=== PATIENT | male | born 1980 | race Caucasian/White ===

== ENCOUNTER 2025-01-22 21:21 | Inpatient (IN) | payer MEDICAID, OTHER ==
[2025-01-22] MEDS ORDERED: MAG HYDROX/AL HYDROX/SIMETH 355 ML BOTTLE PO PRN (21:36)
[2025-01-22] MEDS ORDERED: HALOPERIDOL LACTATE 5 MG/ML 1 ML VIAL IM PRN (21:36)
[2025-01-22] MEDS ORDERED: ACETAMINOPHEN TAB 325 MG TAB PO PRN (21:36)
[2025-01-22] MEDS ORDERED: LORazepam 1 MG TAB PO PRN ×3 (21:36)
[2025-01-22] MEDS ORDERED: MAGNESIUM HYDROXIDE 2,400 MG/30 ML CUP PO PRN (21:36)
[2025-01-22] MEDS ORDERED: OLANZapine 10 MG TAB PO PRN (21:39)
[2025-01-23 08:31] LABS: Basophils # (A) 0.04 10*3/uL (0.00-0.10); Basophils % (A) 0.7 %; Eosinophils # (A) 0.20 10*3/uL (0.04-0.35); Eosinophils % (A) 3.4 %; HCT 45.2 % (39.6-50.0); HGB 15.4 g/dL (13.0-17.0); Lymphocytes # (A) 1.27 10*3/uL (0.90-5.00); Lymphocytes % (A) 21.5 %; MCH 31.0 pg (27.0-32.0); MCHC 34.1 g/dL (32.0-37.0); MCV 90.9 fL (80.0-97.0); Monocytes # (A) 1.12 10*3/uL (0.20-1.00); Monocytes % (A) 19.0 %; Neutrophils # (A) 3.25 10*3/uL (1.80-7.70); Neutrophils % (A) 55.1 %; Platelet Count 138 10*3/uL (140-440); RBC 4.97 10*6/uL (4.40-5.60); RDW 12.4 % (11.5-14.5); WBC 5.90 10*3/uL (4.50-10.00)
[2025-01-23 08:50] LABS: ALT 106 U/L (4-49); AST 110 U/L (17-59); African American GFR (CKD) >90 (>60 ml/min/1.73 sqM); Albumin 3.9 g/dL (3.5-5.0); Alkaline Phosphatase 57 U/L (38-126); Anion Gap 7 mmol/L; Blood Urea Nitrogen 17 mg/dL (9-20); Calcium 8.9 mg/dL (8.4-10.2); Carbon Dioxide 29 mmol/L (22-30); Chloride 103 mmol/L (98-107); Glucose 114 mg/dL (74-99); Non-African American GFR(CKD) 89 (>60 ml/min/1.73 sqM); Potassium 4.1 mmol/L (3.5-5.1); Sodium 139 mmol/L (137-145); Total Protein 6.6 g/dL (6.3-8.2)
[2025-01-23] MEDS: LORazepam 1 MG TAB PO PRN (10:02)
[2025-01-23] MEDS: MULTIVITAMINS, THERA 1 EACH TAB PO SCH (10:02)
[2025-01-23] MEDS: FOLIC ACID 1 MG TAB PO SCH (10:02)
[2025-01-23] MEDS: VENLAFAXINE HCL ER 150 MG CAP PO SCH (10:02)
[2025-01-23] MEDS: THIAMINE 100 MG TAB PO SCH (10:02)
[2025-01-23] MEDS: NICOTINE 14MG/24HR PATCH TRANSDERM SCH (10:02)
--- NOTE | 2025-01-23 10:15 | P.HP ---
Psychiatric H&P - . H&P Date: 01/23/25 History & Physical: Allergies Allergy/AdvReac Type Severity Reaction Status Date / Time No Known Allergies Allergy Verified 01/22/25 21:30 Vital Signs Temp 98.0 F 01/23/25 04:55 Pulse 79 01/23/25 04:55 Resp 16 01/23/25 04:55 BP 111/82 01/23/25 04:55 Pulse Ox 95 01/23/25 04:55 FiO2 Intake & Output 01/22/25 01/23/25 01/23/25 18:59 06:59 18:59 Weight 107.331 kg Laboratory Last Values WBC 5.90 10*3/uL (4.50-10.00) 01/23/25 08:06 RBC 4.97 10*6/uL (4.40-5.60) 01/23/25 08:06 Hgb 15.4 g/dL (13.0-17.0) 01/23/25 08:06 Hct 45.2 % (39.6-50.0) 01/23/25 08:06 MCV 90.9 fL (80.0-97.0) 01/23/25 08:06 MCH 31.0 pg (27.0-32.0) 01/23/25 08:06 MCHC 34.1 g/dL (32.0-37.0) 01/23/25 08:06 Plt Count 138 10*3/uL (140-440) L 01/23/25 08:06 MPV 9.0 fL (9.5-12.2) L 01/23/25 08:06 Immature Gran % (Auto) 0.3 % 01/23/25 08:06 Neutrophils % 55.1 % 01/23/25 08:06 Lymphocytes % 21.5 % 01/23/25 08:06 Monocytes % 19.0 % 01/23/25 08:06 Eosinophils % 3.4 % 01/23/25 08:06 Basophils % 0.7 % 01/23/25 08:06 Immature Gran # 0.02 10*3/uL (0.00-0.04) 01/23/25 08:06 Neutrophils # 3.25 10*3/uL (1.80-7.70) 01/23/25 08:06 Lymphocytes # 1.27 10*3/uL (0.90-5.00) 01/23/25 08:06 Monocytes # 1.12 10*3/uL (0.20-1.00) H 01/23/25 08:06 Eosinophils # 0.20 10*3/uL (0.04-0.35) 01/23/25 08:06 Basophils # 0.04 10*3/uL (0.00-0.10) 01/23/25 08:06 Sodium 139 mmol/L (137-145) 01/23/25 08:06 Potassium 4.1 mmol/L (3.5-5.1) 01/23/25 08:06 Chloride 103 mmol/L (98-107) 01/23/25 08:06 Carbon Dioxide 29 mmol/L (22-30) 01/23/25 08:06 Anion Gap 7 mmol/L 01/23/25 08:06 BUN 17 mg/dL (9-20) 01/23/25 08:06 Creatinine 1.02 mg/dL (0.66-1.25) 01/23/25 08:06 Est GFR (CKD-EPI)AfAm >90 (>60 ml/min/1.73 sqM) 01/23/25 08:06 Est GFR (CKD-EPI)NonAf 89 (>60 ml/min/1.73 sqM) 01/23/25 08:06 Glucose 114 mg/dL (74-99) H 01/23/25 08:06 Calcium 8.9 mg/dL (8.4-10.2) 01/23/25 08:06 Total Bilirubin 0.7 mg/dL (0.2-1.3) 01/23/25 08:06 AST 110 U/L (17-59) H 01/23/25 08:06 ALT 106 U/L (4-49) H 01/23/25 08:06 Alkaline Phosphatase 57 U/L (38-126) 01/23/25 08:06 Total Protein 6.6 g/dL (6.3-8.2) 01/23/25 08:06 Albumin 3.9 g/dL (3.5-5.0) 01/23/25 08:06 TSH 1.460 mIU/L (0.465-4.680) 01/23/25 08:06 01/23/25 09:58 IDENTIFYING DATA: Patient is a 44-year-old male currently living with his aunt and unemployed. HPI: The patient presented to the hospital voicing thoughts of wanting to bring himself. He patient was placed under involuntary certification at this point. The patient notes that he relapsed 2 weeks prior to his admission which he notes increases his depression when he drinks. He notes that he started feeling suicidal with plans of hanging himself but no intent at that time and felt that he needed to get help. The patient has a history of depression when he is sober that waxes and wanes. He notes that currently his depression and anxiety are rated 10/10 over the last 2 weeks. He notes that he has been struggling with his sleep which is a pattern when he drinks. He feels that he has no energy, appetite or concentration. He feels helpless, hopeless and worthless. He notes bouts of crying and feelings of shame. He is unsure if he would harm himself upon discharge at this point. He denies any homicidal thoughts or access to guns. Stressors: Recent move, Unemployment Review of psychiatric systems: Bipolar disorder-negative OCD-negative PTSD-negative Anxiety-chronic worrywart 50% of the day, has problems initiating and maintaining sleep, has chronic fatigue issues and muscle tension Psychosis-negative PAST PSYCHIATRIC HISTORY: The patient has a history of Depression, Anxiety, Alcohol use disorder. The patient has had 4 prior admissions. The patient has had 0 suicide attempts. The patient follows up with cares and AA for therapy. The patient is currently on Effexor XR 150 mg, Mirtazapine 30 mg, Trazodone 100 mg. He has past trials with Hydroxyzine, Lexapro and clonidine. The patient notes no physical, verbal or mental abuse growing up however, notes made several times about his mother being a drug addict in front of him. He denies any sexual abuse in childhood. He notes no history of being behind bars or violence towards other people. PMH: Chronic back pain ALLERGIES: No known drug allergies CHEMICAL DEPENDENCY HISTORY: Caffeine-positive Nicotine-1 pack/day Alcohol-started drinking at the age of 15 but notes that heavy use period drinking is roughly a pint of whiskey daily. Notes when he does not drink he developed sweats and tremors. He has been through 6 rehabs in detoxes in the past. He has been on naltrexone, campral and Antabuse in the past. Cannabis-positive FAMILY PSYCHIATRIC/SUBSTANCE USE HISTORY: Mother overdosed on heroin and has a history of being a heroin addict. Patient notes that everybody in the family suffers from mental illness. SOCIAL HISTORY: The patient was born and raised in [place] and notes that his childhood was "dysfunctional". He notes that he was held back in school and was in special ed. He notes that he completed the 10th grade at the age of 17. 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 He currently lives with his aunt and notes that he is temple. He denies any service. MENTAL STATUS EXAM: General Appearance: Patient appears to be his stated age is alert, directable, and attempts to cooperate. Patient appears to have fair hygiene and grooming. Behavior: Patient presented shaky with tremors but was cooperative and engaged. Speech: Patient's speech is fluent and nonpressured. Mood/Affect: Patient reports their mood is moderately depressed, affect is congruent and constricted. Suicidality/Homicidality: Patient denies having any homicidal ideation intent or plan. Suicidal thoughts with plan but not intent Perceptions: Patient denies any visual hallucinations and denies any auditory hallucinations Though content/process: Circumstantial/suicidal thoughts Memory and concentration: AOX3, grossly intact for the purposes of this session. Can spell "WORLD" backwards Judgment and insight: Poor/Poor STRENGTHS/WEAKNESSES: strength is that patient is resilient. Weakness is that patient has poor judgment and is impulsive INTELLECT: Below average Diagnosis: Alcohol withdrawal Alcohol use disorder severe Major depressive disorder recurrent moderate Generalized anxiety disorder Tobacco use disorder Cannabis use disorder PLAN: -Patient is admitted under involuntary status to MHU for stabilization of psychiatric symptoms and safety. Patient has signed adult voluntary form and medication consent and is placed in patient's chart. -Medications : Continuing Effexor XL 150 mg take 1 tablet by mouth once daily for depression/anxiety Trazodone 50 mg take 1 tablet by mouth at bedtime for insomnia Mirtazapine 30 mg take 1 tablet by mouth at bedtime for insomnia/depression/anxiety Start Naltrexone 50 mg take 1 tablet by mouth once daily for alcohol -Ativan and Haldol PRN for agitation/aggression -Started thiamine, MVM for etoh use -CIWA protocol with Ativan PRN for ETOH withdrawal. -Patient was counselled on substance abuse and desired to cut back on use -Will offer patient subtance use rehab -Patient was informed of the risks, benefits and side effects of the medication and patient verbally consented to taking the medications. Patient signed med consent form and was placed in chart. -Internal Medicine consult to perform medical evaluation and physical. -NRT -nicotine patch -SW on board for discharge planning. Encourage patient to participate in groups to work on coping skills.
[2025-01-23] MEDS: NALTREXONE HCL 50 MG TAB PO SCH (11:08)
[2025-01-23 15:22] LABS: Cholesterol 172.00 mg/dL (0.00-200.00); HDL Cholesterol 53.50 mg/dL (40.00-60.00); LDL Cholesterol,Calculated 86.5 mg/dL (0.0-131.0); Triglycerides 160.00 mg/dL (0.00-149.00); VLDL Calculation 32.00 mg/dL (5.00-40.00)
--- NOTE | 2025-01-23 20:02 | P.CONS ---
History of Present Illness - Reason for Consult Consult date: 01/23/25 medical co-managment - Chief Complaint SI - History of Present Illness Mr. Hooper is a 44-year-old male with past medical history of alcohol use disorder, tobacco use and depression/anxiety He reports that he had a change of living situation. He reports that previously he was living with his aunt and uncle and reports that he had moved to a different aunt. He reports that he has been drinking approximately 1 pint a day of alcohol. He reports he has been drinking uncle for a long time. He reports that he had some thoughts of suicidal ideation. He reports he does not have a plan and he does not have any access to firearms. He reports that his suicidal ideation started Wednesday. Given the symptoms suicidal ideation he then presented to the ER. He does feel at this time he is withdrawing from alcohol. Current lab work available from January 23 at 8:00 shows a white blood cell count of 5.9 hemoglobin 15.4 platelet count of 138. CMP shows an AST of 110 ALT of 106 glucose 114. Lipid profile shows a triglyceride 160 LDL of 86 HDL 53 and a TSH of 1.4. Drug screen and urinalysis currently pending at the time of this writing Review of Systems Negative except for HPI Past Medical History History of Any Multi-Drug Resistant Organisms: None Reported Past Surgical History: Hernia Repair Past Anesthesia/Blood Transfusion Reactions: No Reported Reaction Past Psychological History: No Psychological Hx Reported Smoking Status: Current every day smoker Past Alcohol Use History: Abuse, Daily, Heavy Past Drug Use History: None Reported Medications and Allergies Home Medications Medication Instructions Recorded Confirmed Type Gabapentin 300 mg PO TID 01/22/25 01/22/25 History Melatonin 3 mg PO HS 01/22/25 01/22/25 History Mirtazapine [Remeron] 30 mg PO HS 01/22/25 01/22/25 History OLANZapine [ZyPREXA] 10 mg PO DAILY PRN 01/22/25 01/22/25 History Venlafaxine HCl [Effexor XR] 150 mg PO BID 01/22/25 01/22/25 History cloNIDine HCL 0.1 mg PO BID 01/22/25 01/22/25 History traZODone HCL [Desyrel] 50 mg PO HS 01/22/25 01/22/25 History Allergies Allergy/AdvReac Type Severity Reaction Status Date / Time No Known Allergies Allergy Verified 01/22/25 21:30 Physical Exam Vitals: Vital Signs Temp Pulse Resp BP BP Pulse Ox 01/23/25 09:00 97.0 F L 92 116/81 94 L 01/23/25 04:55 98.0 F 79 16 111/82 95 Intake and Output 01/23/25 01/23/25 01/23/25 06:59 14:59 22:59 Other: Weight 107.331 kg General: [nontoxic], [no distress], [appears at stated age] Derm: [warm], [dry] Head: [atraumatic], [normocephalic], [symmetric] Eyes: [EOMI], [no lid lag], [anicteric sclera] Mouth: [no lip lesion], [mucus membranes moist] Cardiovascular: [S1S2 reg], [no murmur], [positive posterior tibial pulse bilateral], Lungs: [CTA bilateral], [no rhonchi, no rales] , [no accessory muscle use] Abdominal: [soft], [ nontender to palpation], [no guarding], [no appreciable organomegaly] Ext: [no gross muscle atrophy], [no edema], [no contractures] Neuro: Moving all extremity spontaneously [no focal neuro deficits] Psych: [Alert], [oriented], [appropriate affect] Results CBC & Chem 7: 01/23/25 08:06 01/23/25 08:06 Labs: Abnormal Lab Results - Last 24 Hours (Table) 01/23/25 01/23/25 Range/Units 08:06 08:06 Plt Count 138 L (140-440) 10*3/uL MPV 9.0 L (9.5-12.2) fL Monocytes # 1.12 H (0.20-1.00) 10*3/uL Glucose 114 H (74-99) mg/dL AST 110 H (17-59) U/L ALT 106 H (4-49) U/L Triglycerides 160.00 H (0.00-149.00) mg/dL Assessment and Plan Assessment: #) EtOH use disorder with EtOH withdrawal. He reports he drinks 1 pint a day and has been drinking alcohol his entire life. Continue CIWA with as needed Ativan. Continue high-dose thiamine and multivitamin support. The patient has been started on naltrexone therapy to help with EtOH craving #) EtOH transaminitis. Monitor LFTs and would recommend rechecking in approximately 1 month #) Tobacco use, recommend cessation, nicotine patch has been ordered #) Suicidal ideation, primary management as per psychiatry team #) Depression/anxiety. Continue home Effexor 150 mg twice daily, mirtazapine 30 mg nightly #) Class I obesity with a BMI of 33.9, weight loss recommended Urine drug screen and urinalysis currently pending at the time this writing Thank you for allowing us to take care of this patient, please contact us if any questions arise Time with Patient: Greater than 30
[2025-01-23] MEDS: MELATONIN 3 MG TABLET PO SCH (21:51)
[2025-01-23] MEDS: MIRTAZAPINE 15 MG TAB PO SCH (21:52)
[2025-01-23] MEDS: NICOTINE 21MG/24HR PATCH TRANSDERM SCH (22:44)
[2025-01-24] MEDS: NICOTINE 21MG/24HR PATCH TRANSDERM SCH (08:32)
[2025-01-24 12:42] VITALS: BMI 33.8
--- NOTE | 2025-01-24 12:46 | P.PN ---
Progress Note - Text Progress Note Date: 01/24/25 Chief complaint: Suicidal thoughts, Interval History: Patient was seen wandering the hallways and was directable and agreeable to speak with investigative writer in the office. The patient notes that his cravings are decreasing but, he notes that he is jittery and sweaty. Per staff he scored a 5 on his CIWA. He notes that his depression and anxiety are 6/10 with 10 being worse than yesterday 10/10. He notes that he slept better and had 4 hours of sleep last night. He notes that his energy remains low but he has noticed an improvement with his appetite and concentration. He denies any ongoing suicidal thoughts. He had mentioned that he has had back problems for a while and used to be on gabapentin. I explained to the patient that he had ibuprofen as well as Tylenol if he needed help with back pain at this point. Mental Status Exam: General Appearance: Patient appears to be stated age is alert, directable, and cooperative. Behavior: Patient is calmly seated without any agitated behavior. Speech: Patient's speech is fluent and nonpressured. Mood/Affect: Mood is improving mildly, affect is congruent and constricted. Suicidality/Homicidality: Patient denies having any suicidal or homicidal ideation intent or plan. Perceptions: Patient denies any visual hallucinations and denies any auditory hallucinations Though content/process: There is no evidence of any delusional thought content and thought process is linear and goal-directed. Memory and concentration: AOX3, grossly intact for the purposes of this session Judgment and insight: Improving mildly Diagnosis: Alcohol withdrawal Alcohol use disorder severe Major depressive disorder recurrent moderate Generalized anxiety disorder Tobacco use disorder Cannabis use disorder Assessment: The patient continues to go through alcohol withdrawal. Patient is dealing with some back pain and was informed that the as needed medications help with that. It is felt that if this does not improve his overall pain level possibly gabapentin which would be beneficial for anxiety as well as alcohol use disorder. PLAN: -Patient is admitted under involuntary status to MHU for stabilization of psychiatric symptoms and safety. Patient has signed adult voluntary form and medication consent and is placed in patient's chart. -Medications : Continuing Effexor XL 150 mg take 1 tablet by mouth once daily for depression/anxiety Trazodone 50 mg take 1 tablet by mouth at bedtime for insomnia Mirtazapine 30 mg take 1 tablet by mouth at bedtime for insomnia/depression/anxiety Naltrexone 50 mg take 1 tablet by mouth once daily for alcohol -Ativan and Haldol PRN for agitation/aggression -Started thiamine, MVM for etoh use -CIWA protocol with Ativan PRN for ETOH withdrawal. -Patient was counselled on substance abuse and desired to cut back on use -Will offer patient subtance use rehab -Patient was informed of the risks, benefits and side effects of the medication and patient verbally consented to taking the medications. Patient signed med consent form and was placed in chart. -Internal Medicine consult to perform medical evaluation and physical. -NRT -nicotine patch -SW on board for discharge planning. Encourage patient to participate in groups to work on coping skills.
--- NOTE | 2025-01-25 12:40 | P.PN ---
Progress Note - Text Progress Note Date: 01/25/25 Interval History: Patient was seen laying in bed today. stated [facility] he states that he is continuing to have difficulties with his drinkng. claims that his mood and anxiety have been mildly improving since yesterday. He states that he is still having some minor w/d sx however is denying going to any groups was encouraged to do so today. Claims his appetite is improving. He would like some medication that he is currently does. States that he slept quite a bit last night. He continues to be fairly indifferent about a week, spoke about it and options. He claims that he will think about it today for follow-up. At this time he is denying any suicidal or homicidal ideations intent or plan of the auditory or visual decisions. Not reporting any side effects from the medications. Mental Status Exam: General Appearance: Patient appears to be stated age is alert, directable, and cooperative. Behavior: Patient is calmly seated without any agitated behavior. Superficial at times. He was fairly pleasant Speech: Patient's speech is fluent and nonpressured. Mood/Affect: Mood is improving mildly, affect is congruent and constricted. Suicidality/Homicidality: Patient denies having any suicidal or homicidal ideation intent or plan. Perceptions: Patient denies any visual hallucinations and denies any auditory hallucinations Though content/process: There is no evidence of any delusional thought content and thought process is linear and goal-directed. Rambling at times. Memory and concentration: AOX3, grossly intact for the purposes of this session Judgment and insight: Poor, improving mildly Diagnosis: Major depressive disorder without psychotic features Alcohol use disorder severe Generalized anxiety disorder Nicotine dependence Cannabis use disorder PLAN: -Patient is admitted under voluntary status to MHU for stabilization of psyc hiatric symptoms and safety. Patient has signed adult voluntary form and medication consent and is placed in patient's chart. -Medications : Effexor XL 150 mg take 1 tablet by mouth once daily for depression/anxiety Trazodone 50 mg take 1 tablet by mouth at bedtime for insomnia Mirtazapine 30 mg take 1 tablet by mouth at bedtime for insomnia/depression/anxiety Naltrexone 50 mg take 1 tablet by mouth once daily for alcohol -Ativan and Haldol PRN for agitation/aggression -thiamine, MVM for etoh use -CIWA protocol with Ativan PRN for ETOH withdrawal. -NRT -nicotine patch -SW on board for discharge planning. Encourage patient to participate in groups to work on coping skills. hopeful for discharge early next week, will continue to encourage patient to go to rehab.
--- NOTE | 2025-01-26 11:03 | P.PN ---
Progress Note - Text Progress Note Date: 01/26/25 Interval History: Patient was seen laying in bed today. Patient was agreeable today to speak with manual writer in the office. He claims that he is doing a bit better today with regards to his mood and anxiety. Continues to state that he is having some mild withdrawal symptoms from alcohol. Was requesting to have his trazodone increased to 100 mg. Claims that he found it difficult to initiate sleep last night. Claims that he tried to go to some groups this morning and will try to do more of the weekend. Has been showering. At this time he is denying any suicidal or homicidal ideations intent or plan of the auditory or visual decisions. Not reporting any side effects from the medications. Mental Status Exam: General Appearance: Patient appears to be stated age is alert, directable, and cooperative. Behavior: Patient is calmly seated without any agitated behavior. Superficial at times. He was fairly pleasant Speech: Patient's speech is fluent and nonpressured. Mood/Affect: Mood is improving mildly, affect is congruent and constricted. Improving mildly Suicidality/Homicidality: Patient denies having any suicidal or homicidal ideation intent or plan. Perceptions: Patient denies any visual hallucinations and denies any auditory hallucinations Though content/process: There is no evidence of any delusional thought content and thought process is linear and goal-directed. Rambling at times Memory and concentration: AOX3, grossly intact for the purposes of this session Judgment and insight: Poor, improving mildly Diagnosis: Major depressive disorder without psychotic features Alcohol use disorder severe Generalized anxiety disorder Nicotine dependence Cannabis use disorder PLAN: -Patient is admitted under voluntary status to MHU for stabilization of psychiatric symptoms and safety. Patient has signed adult voluntary form and medication consent and is placed in patient's chart. -Medications : Effexor XL 150 mg take 1 tablet by mouth once daily for depression/anxiety increase Trazodone 100 mg take 1 tablet by mouth at bedtime for insomnia Mirtazapine 30 mg take 1 tablet by mouth at bedtime for insomnia/depression/anxiety Naltrexone 50 mg take 1 tablet by mouth once daily for alcohol -Ativan and Haldol PRN for agitation/aggression -thiamine, MVM for etoh use -CIWA protocol with Ativan PRN for ETOH withdrawal. can discontinue likely tomorrow -NRT -nicotine patch -SW on board for discharge planning. Encourage patient to participate in groups to work on coping skills. hopeful for discharge wednesday, will continue to encourage patient to go to rehab as he is still undecided.
[2025-01-26] MEDS: MELATONIN 3 MG TABLET PO SCH (22:14)
[2025-01-27] MEDS: IBUPROFEN 600 MG TAB PO PRN (09:05)
--- NOTE | 2025-01-27 13:30 | P.PN ---
Progress Note - Text Progress Note Date: 01/27/25 Chief complaint: Suicidal thoughts Interval History: Patient was seen wandering the hallways and was directable and agreeable to speak with racebook writer in the office. The patient notes that he continues to struggle with sleep even with the 100 mg of Trazodone. He had asked for Seroquel. He notes that he went to groups today but he finds them too short. He feels bored but is looking forward to move the night tonight. He feels that his energy is normal. He notes that his appetite start to strip picker and he is using the ensures. His concentration is good. He denies any depression and notes that he continues to have chronic low-grade anxiety. He denies any suicidal thoughts. Currently withdrawal symptoms are 0/10 patient is receiving Ativan when he starts feeling like he is going through withdrawal. Mental Status Exam: General Appearance: Patient appears to be stated age is alert, directable, and cooperative. Behavior: Patient is calmly seated without any agitated behavior. Speech: Patient's speech is fluent and nonpressured. Mood/Affect: Mood is improving mildly, affect is congruent and constricted. Suicidality/Homicidality: Patient denies having any suicidal or homicidal ideation intent or plan. Perceptions: Patient denies any visual hallucinations and denies any auditory hallucinations Though content/process: There is no evidence of any delusional thought content and thought process is linear and goal-directed. Memory and concentration: AOX3, grossly intact for the purposes of this session Judgment and insight: Improving mildly Diagnosis: Major depressive disorder without psychotic features Alcohol use disorder severe Generalized anxiety disorder Nicotine dependence Cannabis use disorder PLAN: -Patient is admitted under voluntary status to MHU for stabilization of psychiatric symptoms and safety. Patient has signed adult voluntary form and medication consent and is placed in patient's chart. -Medications : Effexor XL 150 mg take 1 tablet by mouth once daily for depression/anxiety Decrease trazodone 50 mg take 1 tablet by mouth at bedtime for insomnia Mirtazapine 30 mg take 1 tablet by mouth at bedtime for insomnia/depression/anxiety Naltrexone 50 mg take 1 tablet by mouth once daily for alcohol Start Seroquel 50 mg take 1 tablet by mouth at bedtime for insomnia -Ativan and Haldol PRN for agitation/aggression -thiamine, MVM for etoh use -CIWA protocol with Ativan PRN for ETOH withdrawal. can discontinue likely tomorrow -NRT -nicotine patch -SW on board for discharge planning. Encourage patient to participate in groups to work on coping skills. hopeful for discharge wednesday, will continue to encourage patient to go to rehab as he is still undecided.
[2025-01-27] MEDS: QUEtiapine 50 MG TAB PO SCH (22:14)
--- NOTE | 2025-01-28 08:39 | P.CN ---
Psychiatric Consult - . Consult date: 01/28/25 Consult:: 01/28/25 08:32 Chief complaint: Suicidal thoughts Interval History: Patient was seen wandering the hallways and was directable and agreeable to speak with tech writer in the office. The patient notes that he does not have any symptoms of withdrawal but still takes the Ativan at night to help him relax. He notes that he took the Seroquel for the first time last night and does not know a big improvement versus the Trazodone. He notes mild depression and anxiety. He feels that his energy is fair. He notes that he has been taking his ensures. He notes that he attends group and is able to focus on group. He denies any suicidal or homicidal ideations. When asking about rehab patient had noted he would like to get his life back and that he has only had 1 relapse so he does not figure that he needs rehab. He also notes that he has the access number to get into rehab if he has to. Mental Status Exam: General Appearance: Patient appears to be stated age is alert, directable, and cooperative. Behavior: Patient is calmly seated without any agitated behavior. Speech: Patient's speech is fluent and nonpressured. Mood/Affect: Mood is improving mildly, affect is congruent and constricted. Suicidality/Homicidality: Patient denies having any suicidal or homicidal ideation intent or plan. Perceptions: Patient denies any visual hallucinations and denies any auditory hallucinations Though content/process: There is no evidence of any delusional thought content and thought process is linear and goal-directed. Memory and concentration: AOX3, grossly intact for the purposes of this session Judgment and insight: Improving mildly Diagnosis: Major depressive disorder without psychotic features Alcohol use disorder severe Generalized anxiety disorder Nicotine dependence Cannabis use disorder Assessment: The patient is resistant to inpatient rehab recommendations at this point would be outpatient services such as AA or intensive outpatient for substance abuse. Otherwise, he appears to be stable. PLAN: -Patient is admitted under voluntary status to MHU for stabilization of psychiatric symptoms and safety. Patient has signed adult voluntary form and medication consent and is placed in patient's chart. -Medications : Effexor XL 150 mg take 1 tablet by mouth once daily for depression/anxiety Mirtazapine 30 mg take 1 tablet by mouth at bedtime for insomnia/depression/anxiety Naltrexone 50 mg take 1 tablet by mouth once daily for alcohol Seroquel 50 mg take 1 tablet by mouth at bedtime for insomnia Trazodone 50 mg take 1 tablet by mouth at bedtime for insomnia -Ativan and Haldol PRN for agitation/aggression -thiamine, MVM for etoh use -CIWA protocol with Ativan PRN for ETOH withdrawal. can discontinue likely tomorrow -NRT -nicotine patch -SW on board for discharge planning. Encourage patient to participate in groups to work on coping skills. hopeful for discharge wednesday, will continue to encourage patient to go to rehab as he notes at this time no and he has the number to access.
[2025-01-28 09:58] VITALS: RESP 16
[2025-01-29 08:39] VITALS: BP 112/86; PULSE 100; TEMP 98.3
--- NOTE | 2025-01-29 11:20 | P.PN ---
Progress Note - Text Progress Note Date: 01/28/25 01/28/25 08:32 Chief complaint: Suicidal thoughts Interval History: Patient was seen wandering the hallways and was directable and agreeable to speak with newspaper writer in the office. The patient notes that he does not have any symptoms of withdrawal but still takes the Ativan at night to help him relax. He notes that he took the Seroquel for the first time last night and does not know a big improvement versus the Trazodone. He notes mild depression and anxiety. He feels that his energy is fair. He notes that he has been taking his ensures. He notes that he attends group and is able to focus on group. He denies any suicidal or homicidal ideations. When asking about rehab patient had noted he would like to get his life back and that he has only had 1 relapse so he does not figure that he needs rehab. He also notes that he has the access number to get into rehab if he has to. Mental Status Exam: General Appearance: Patient appears to be stated age is alert, directable, and cooperative. Behavior: Patient is calmly seated without any agitated behavior. Speech: Patient's speech is fluent and nonpressured. Mood/Affect: Mood is improving mildly, affect is congruent and constricted. Suicidality/Homicidality: Patient denies having any suicidal or homicidal ideation intent or plan. Perceptions: Patient denies any visual hallucinations and denies any auditory hallucinations Though content/process: There is no evidence of any delusional thought content and thought process is linear and goal-directed. Memory and concentration: AOX3, grossly intact for the purposes of this session Judgment and insight: Improving mildly Diagnosis: Major depressive disorder without psychotic features Alcohol use disorder severe Generalized anxiety disorder Nicotine dependence Cannabis use disorder Assessment: The patient is resistant to inpatient rehab recommendations at this point would be outpatient services such as AA or intensive outpatient for substance abuse. Otherwise, he appears to be stable. PLAN: -Patient is admitted under voluntary status to MHU for stabilization of p sychiatric symptoms and safety. Patient has signed adult voluntary form and medication consent and is placed in patient's chart. -Medications : Effexor XL 150 mg take 1 tablet by mouth once daily for depression/anxiety Mirtazapine 30 mg take 1 tablet by mouth at bedtime for insomnia/depression/anxiety Naltrexone 50 mg take 1 tablet by mouth once daily for alcohol Seroquel 50 mg take 1 tablet by mouth at bedtime for insomnia Trazodone 50 mg take 1 tablet by mouth at bedtime for insomnia -Ativan and Haldol PRN for agitation/aggression -thiamine, MVM for etoh use -CIWA protocol with Ativan PRN for ETOH withdrawal. can discontinue likely tomorrow -NRT -nicotine patch -SW on board for discharge planning. Encourage patient to participate in groups to work on coping skills. hopeful for discharge wednesday, will continue to encourage patient to go to rehab as he notes at this time no and he has the number to access.
--- NOTE | 2025-01-29 11:33 | P.DS ---
Providers Date of admission: 01/23/25 04:04 Expected date of discharge: 01/29/25 Attending physician: Chava Lopez MD Consults: 01/22/25 21:36 Consult Physician Routine Consulting Provider: Claudia Patterson Consult Reason/Comments: medical H&P Do you want consulting provider notified?: Yes Primary care physician: Stated None - Discharge Diagnosis(es) (1) Major depressive disorder without psychotic features Current Visit: Yes Status: Acute Priority: High (2) Alcohol use disorder, severe, dependence Current Visit: Yes Status: Acute Priority: High (3) Generalized anxiety disorder Current Visit: Yes Status: Acute Priority: Medium (4) Cannabis use disorder Current Visit: Yes Status: Acute Priority: Medium (5) Nicotine dependence Current Visit: Yes Status: Acute Priority: Low Hospital Course: Admission HPI: Admission note was completed by Dr Mittal "patient is a 44-year-old male currently living with his aunt and unemployed. The patient presented to the hospital voicing thoughts of wanting to bring himself. He patient was placed under involuntary certification at this point. The patient notes that he relapsed 2 weeks prior to his admission which he notes increases his depression when he drinks. He notes that he started feeling suicidal with plans of hanging himself but no intent at that time and felt that he needed to get help. The patient has a history of depression when he is sober that waxes and wanes. He notes that currently his depression and anxiety are rated 10/10 over the last 2 weeks. He notes that he has been struggling with his sleep which is a pattern when he drinks. He feels that he has no energy, appetite or concentration. He feels helpless, hopeless and worthless. He notes bouts of crying and feelings of shame. He is unsure if he would harm himself upon discharge at this point. He denies any homicidal thoughts or access to guns." Hospital course: Upon admission to the unit patient was directable and agreeable to commence treatment and signed adult voluntary form. Patient was initially depressed isolated going to withdrawals however with time and treatment patient got along well with other patients on the unit and followed unit protocol. Patient was compliant with the medications and denied any side effects throughout hospital course. Patient was started on Effexor increased to 150 mg twice daily for depression/anxiety, Remeron 30 mg nightly for insomnia/depression/anxiety, naltrexone p.o 50 mg daily for alcohol cravings, Seroquel 50 mg nightly for insomnia/mood adjunct/anxiety, patient was also on CIWA protocol with as needed Ativan for alcohol withdrawal. Patient spoke of his stressors however did not participate much in group/activity therapy and mainly kept to themselves during hospitalization. Patient was also seen by medical team for history and physical exam. Throughout the course of the hospitalization patient gradually improved with regards to mood, anxiety, alcohol withdrawal, sleep and returned back to their baseline level of functioning. On the day of discharge patient denied any suicidal or homicidal ideations intent or plan denied any auditory or visual hallucinations. Patient endorsed wanting to live for their health and family. The patient denied any access to guns or weapons. Patient denied any paranoia and did not endorse any delusions. Patient does have a significant history of substance abuse and was counseled on abstaining from all substances including alcohol and marijuana. Patient was offered however declined inpatient substance-abuse rehab. Patient elected to do outpatient substance use treatment program through their outpatient provider. Patient was also counseled on the medications and need for regular compliance and was encouraged to follow-up with their outpatient appointment for mental health and also for primary care. Patient will be discharged today back to his car and home and to follow up at [facility] in [place]. Mental status exam: General Appearance: Patient appears to be mildly overweight, unshaven, stated age is alert, pleasant, and cooperative. Patient is in no acute distress and has improved hygiene and grooming Behavior: Patient is calmly seated without any agitated behavior. Speech: Patient's speech is fluent and nonpressured. Mood/Affect: Patient reports their mood is "good", affect is congruent and euthymic. Suicidality/Homicidality: Patient denies having any suicidal or homicidal ideation intent or plan. Perceptions: Patient denies any auditory or visual hallucinations. Though content/process: There is no evidence of any delusional thought content and thought process is linear and goal-directed. More future oriented Memory and concentration: AOX3, grossly intact for the purposes of this session. Can spell "WORLD" backwards correctly. Judgment and insight: improved with guarded prognosis Impression: Major depressive disorder without psychotic features Alcohol use disorder severe dependence Generalized anxiety disorder Cannabis use disorder Nicotine dependence Plan: -Continue with discharge today as patient has improved and stabilized psychiatrically and is not currently an imminent threat to themself and/or others. Patient will remain at chronically elevated risk for harm to self an d/or others due to their impulsivity and substance abuse. -Continue medications: Effexor XL 150 mg twice daily for depression/anxiety, Remeron 30 mg nightly for insomnia/depression/anxiety, naltrexone p.o. 50 mg daily for alcohol cravings, Seroquel 50 mg nightly for insomnia/severe anxiety/mood adjunct -Patient was counseled on the need for medication compliance and appropriate follow-up at mental health and also primary care for medical issues. Patient verbalized understanding and agreed. -Social work to help coordinate patients discharge today. also to ensure safe home environment that guns/weapons are either removed from the home or locked away. Social work also to arrange for patients follow up appointments with [facility] for psychiatric care along with follow up with primary care provider. -Patient counseled on abstaining from recreational drugs and marijuana and alcohol. Was informed/educated on the adverse effects on their physical and mental health. Patient verbally agreed and understood. Patient was offered substance abuse treatment however declined at this time. -Patient was instructed to return to the hospital or seek immediate medical care if their psychiatric or medical symptoms do worsen or reoccur. Allergies Allergy/AdvReac Type Severity Reaction Status Date / Time No Known Allergies Allergy Verified 01/22/25 21:30 Laboratory Results WBC 5.90 10*3/uL (4.50-10.00) 01/23/25 08:06 RBC 4.97 10*6/uL (4.40-5.60) 01/23/25 08:06 Hgb 15.4 g/dL (13.0-17.0) 01/23/25 08:06 Hct 45.2 % (39.6-50.0) 01/23/25 08:06 MCV 90.9 fL (80.0-97.0) 01/23/25 08:06 MCH 31.0 pg (27.0-32.0) 01/23/25 08:06 MCHC 34.1 g/dL (32.0-37.0) 01/23/25 08:06 Plt Count 138 10*3/uL (140-440) L 01/23/25 08:06 MPV 9.0 fL (9.5-12.2) L 01/23/25 08:06 Immature Gran % (Auto) 0.3 % 01/23/25 08:06 Neutrophils % 55.1 % 01/23/25 08:06 Lymphocytes % 21.5 % 01/23/25 08:06 Monocytes % 19.0 % 01/23/25 08:06 Eosinophils % 3.4 % 01/23/25 08:06 Basophils % 0.7 % 01/23/25 08:06 Immature Gran # 0.02 10*3/uL (0.00-0.04) 01/23/25 08:06 Neutrophils # 3.25 10*3/uL (1.80-7.70) 01/23/25 08:06 Lymphocytes # 1.27 10*3/uL (0.90-5.00) 01/23/25 08:06 Monocytes # 1.12 10*3/uL (0.20-1.00) H 01/23/25 08:06 Eosinophils # 0.20 10*3/uL (0.04-0.35) 01/23/25 08:06 Basophils # 0.04 10*3/uL (0.00-0.10) 01/23/25 08:06 Sodium 139 mmol/L (137-145) 01/23/25 08:06 Potassium 4.1 mmol/L (3.5-5.1) 01/23/25 08:06 Chloride 103 mmol/L (98-107) 01/23/25 08:06 Carbon Dioxide 29 mmol/L (22-30) 01/23/25 08:06 Anion Gap 7 mmol/L 01/23/25 08:06 BUN 17 mg/dL (9-20) 01/23/25 08:06 Creatinine 1.02 mg/dL (0.66-1.25) 01/23/25 08:06 Est GFR (CKD-EPI)AfAm >90 (>60 ml/min/1.73 sqM) 01/23/25 08:06 Est GFR (CKD-EPI)NonAf 89 (>60 ml/min/1.73 sqM) 01/23/25 08:06 Glucose 114 mg/dL (74-99) H 01/23/25 08:[address] Glu mg/dL 108 mg/dL 01/23/25 08:06 Hemoglobin A1c 5.4 % (<=6.0) 01/23/25 08:06 Calcium 8.9 mg/dL (8.4-10.2) 01/23/25 08:06 Total Bilirubin 0.7 mg/dL (0.2-1.3) 01/23/25 08:06 AST 110 U/L (17-59) H 01/23/25 08:06 ALT 106 U/L (4-49) H 01/23/25 08:06 Alkaline Phosphatase 57 U/L (38-126) 01/23/25 08:06 Total Protein 6.6 g/dL (6.3-8.2) 01/23/25 08:06 Albumin 3.9 g/dL (3.5-5.0) 01/23/25 08:06 Triglycerides 160.00 mg/dL (0.00-149.00) H 01/23/25 08:06 Cholesterol 172.00 mg/dL (0.00-200.00) 01/23/25 08:06 LDL Cholesterol, Calc 86.5 mg/dL (0.0-131.0) 01/23/25 08:06 VLDL Cholesterol, Calc 32.00 mg/dL (5.00-40.00) 01/23/25 08:06 HDL Cholesterol 53.50 mg/dL (40.00-60.00) 01/23/25 08:06 Cholesterol/HDL Ratio 3.21 Ratio 01/23/25 08:06 TSH 1.460 mIU/L (0.465-4.680) 01/23/25 08:06 Vital Signs Temp 98.3 F 01/29/25 08:38 Pulse 100 01/29/25 08:38 Resp 16 01/29/25 08:38 BP 112/86 01/29/25 08:38 Pulse Ox 95 01/29/25 08:38 FiO2 Patient Condition at Discharge: Stable Plan - Discharge Summary Discharge Rx Participant: No New Discharge Prescriptions: New Nicotine 21Mg/24Hr Patch [Habitrol] 1 patch TRANSDERM DAILY 14 Days #14 patch Ibuprofen [Motrin] 600 mg PO Q6HR PRN tab PRN Reason: Moderate Pain (Scale 4 To 6) Multivitamins, Thera [Multivitamin (formulary)] 1 each PO DAILY tab Naltrexone HCl [Revia] 50 mg PO DAILY 30 Days #30 tab Folic Acid 1 mg PO DAILY tab Melatonin 10 mg PO HS 30 Days #60 tab QUEtiapine [SEROquel] 50 mg PO HS 30 Days #30 tab Thiamine [Vitamin B-1] 100 mg PO DAILY tab Continue Venlafaxine HCl [Effexor XR] 150 mg PO BID 30 Days #60 cap Mirtazapine [Remeron] 30 mg PO HS 30 Days #60 tab Discontinued traZODone HCL [Desyrel] 50 mg PO HS cloNIDine HCL 0.1 mg PO BID Melatonin 3 mg PO HS OLANZapine [ZyPREXA] 10 mg PO DAILY PRN PRN Reason: Agitation Gabapentin 300 mg PO TID Discharge Medication List Folic Acid 1 mg PO DAILY tab 01/29/25 [Rx] Ibuprofen [Motrin] 600 mg PO Q6HR PRN tab 01/29/25 [Rx] Melatonin 10 mg PO HS 30 Days #60 tab 01/29/25 [Rx] Mirtazapine [Remeron] 30 mg PO HS 30 Days #60 tab 01/29/25 [Rx] Multivitamins, Thera [Multivitamin (formulary)] 1 each PO DAILY tab 01/29/25 [Rx] Naltrexone HCl [Revia] 50 mg PO DAILY 30 Days #30 tab 01/29/25 [Rx] Nicotine 21Mg/24Hr Patch [Habitrol] 1 patch TRANSDERM DAILY 14 Days #14 patch 01/29/25 [Rx] QUEtiapine [SEROquel] 50 mg PO HS 30 Days #30 tab 01/29/25 [Rx] Thiamine [Vitamin B-1] 100 mg PO DAILY tab 01/29/25 [Rx] Venlafaxine HCl [Effexor XR] 150 mg PO BID 30 Days #60 cap 01/29/25 [Rx] Follow up Appointment(s)/Referral(s): [facility] [Other] - 1 Week [facility] [NON-STAFF] - 1 Week Patient Instructions/Handouts: How to Stop Smoking (DC), Depression (DC), Generalized Anxiety Disorder (ED), Cannabis Abuse (DC), Alcohol Use Disorder (DC) Activity/Diet/Wound Care/Special Instructions: U Discharge Info Avoid the use of street drugs and alcohol. Take all medications as prescribed. When you are in need of refills on your medications, please contact your outpatient medical provider and/or outpatient psychiatrist. Please go to your scheduled outpatient appointments for aftercare treatment. If symptoms return or become worse, call the crisis line at or and/or visit the nearest emergency room for assistance. National Suicide and Crisis Lifeline - call or text 988. Discharge Disposition: HOME SELF-CARE
== END 2025-01-29 12:22 | disposition home or self-care (01) | DRG 885 ==
LOC: 3MHU 01-23 04:04
PROVIDERS: ADMIT Psychiatry & Neurology Psychiatry; ATTEND Psychiatry & Neurology Psychiatry
DX: F33.1 Major depressive disorder, recurrent, moderate (principal); R45.851 Suicidal ideations; F10.239 Alcohol dependence with withdrawal, unspecified; F12.90 Cannabis use, unspecified, uncomplicated; F17.200 Nicotine dependence, unspecified, uncomplicated; F41.1 Generalized anxiety disorder; G47.00 Insomnia, unspecified; Z55.5 Less than a high school diploma; Z63.72 Alcoholism and drug addiction in family; Z79.899 Other long term (current) drug therapy; Z81.3 Family history of other psychoactive substance abuse and dependence
CPT/HCPCS: 80053; 80061; 83036; 84443; 85025